=== PATIENT | female | born 1990 | race Hispanic/Latino ===

== ENCOUNTER 2017-01-29 10:37 | Day surgery (SDC) | payer MEDICAID ==
--- NOTE | 2017-01-28 12:22 | Short Stay Summary ---
Short Stay Documentation Date of service: 01/29/17 Narrative H&P: Patient seen and examined DOS and no changes noted, ready for surgery. 26 yo who adamantly wants tubal ligation and desires no further pregnancies. She says she would not desires other pregnancies if her children were killed in an accident. She understands procedure is not reversible and that the only way to get after this procedure is through IVF, which is very expensive. She also knows that this procedure has a failure rate of about 1 in 400. She accepts the stated risks of the procedure and the failure rate and the irreversibility. - History Principal diagnosis: sterilization Past Medical History: No medical history Past Surgical History: No surgical history Social history: no significant social history - Allergies and Medications Current Medications: Allergies No Known Allergies Allergy (Unverified 01/25/17 14:59) Home Medications Medication Instructions Recorded Confirmed Last Taken Type No Known Home Medications [No 01/25/17 01/25/17 Unknown History Reported Home Medications] - Physical exam General appearance: no acute distress, well-nourished Integumentary: no rash, no abnormal pigmentation HEENT: PERRLA, EOMI, Mucous membr. moist/pink Lungs: Clear to auscultation, Normal air movement Breasts: deferred Heart: Regular rate, No murmurs Gastrointestinal: normal, no tenderness, obese Female Genitourinary: normal Rectal Exam: deferred Extremities: no ischemia, No edema Neurological: Normal gait, Normal speech, Normal tone, Cranial nerves 3-12 NL - Brief post op/procedure progress note Date of procedure: 01/29/17 Pre-op diagnosis: elective sterilization Post-op diagnosis: same Procedure: laparoscopic bilateral tubal fulguration Anesthesia: GETA Findings: Normal tubes, uterus and ovaries except for a slightly clubbed left fallopian tube Surgeon: ALLAN SANDOVAL Estimated blood loss: minimal Pathology: none Condition: stable - Hospital course Hospital course: The patient did well intraoperatively and tolerated the procedure well and was discharged after a normal PACU course. - Disposition Condition at discharge: Good Disposition: DISCHARGED TO HOME OR SELFCARE - Discharge Diagnoses (1) Sterilization Status: Acute Short Stay Discharge Plan Activity: advance as tolerated (pelvic rest for 3 days, no driving until not taking [place]) Weight Bearing Status: Weight Bear as Tolerated Diet: regular Wound: open to air, keep clean and dry Follow up with: ALLAN SANDOVAL MD [Staff Physician] - 7 Days Prescriptions: HYDROcodone/APAP 5-325 [[place] 5/325] 1 each PO Q6HR PRN #20 tablet PRN Reason: Pain Ibuprofen [Motrin 600 MG tab] 600 mg PO Q8H PRN #30 tablet PRN Reason: Pain
--- NOTE | 2017-01-29 07:14 | Anesthesia Consultation ---
Anesthesia Consult and Med Hx Date of service: 01/29/17 (Scheduled for Lap BTL with Dr. Cornejo) - Pre-Operative Health Status ASA Pre-Surgery Classification: ASA2 Proposed Anesthetic Plan: General - Pre-Anesthesia Comment Pre-Anesthesia Comments: No previous anesthesia complications - Pulmonary Hx Smoking: Yes - Cardiovascular System Hx Hypertension: No - Central Nervous System Hx Psychiatric Problems: No - Gastrointestinal Hx Gastroesophageal Reflux Disease: No - Endocrine Hx Non-Insulin Dependent Diabetes: No Hx Thyroid Disease: No - Other Systems Hx Alcohol Use: Yes (occas) Hx Cancer: No Hx Obesity: Yes (BMI = 32.6)
[~2017-01-29 10:37] MED LIST: LACTATED RINGERS 1,000 ML IV SCH; NACL 0.9% IR ONE; PEPCID PO NR; VERSED IV NR
[2017-01-29] MEDS ORDERED: DIPRIVAN 10 MG/ML IV ONE (11:06)
[2017-01-29] MEDS ORDERED: DILAUDID ONE (11:07)
--- NOTE | 2017-01-29 11:37 | Anesthesia Day of Surgery ---
Anesthesia Day of Surgery - Day of Surgery Patient Examined: Yes Patient H&P Reviewed: Yes Patient is NPO: Yes
--- NOTE | 2017-01-29 11:37 | Anesthesia Consultation ---
Anesthesia Consult and Med Hx Date of service: 01/29/17 - Airway Anesthetic Teeth Evaluation: Good ROM Head & Neck: Adequate Mental/Hyoid Distance: Adequate Mallampati Class: Class II Intubation Access Assessment: Probably Good - Pulmonary Exam CTA: Yes - Cardiac Exam Cardiac Exam: RRR - Pre-Operative Health Status ASA Pre-Surgery Classification: ASA2 Proposed Anesthetic Plan: General - Pulmonary Hx Smoking: Yes (last cigarette yesterday) Hx Asthma: No - Cardiovascular System Hx Hypertension: No Hx Coronary Artery Disease: No - Central Nervous System Hx Seizures: No CVA: No Hx Psychiatric Problems: No - Gastrointestinal Hx Gastroesophageal Reflux Disease: No - Endocrine Hx Renal Disease: No Hx Non-Insulin Dependent Diabetes: No Hx Thyroid Disease: No - Other Systems Hx Alcohol Use: Yes (occas) Hx Cancer: No Hx Obesity: Yes (BMI = 32.6)
--- NOTE | 2017-01-29 11:54 | Operative Report ---
Operative Report Operative Report: Date of procedure: 01/29/2017 Time of completion of procedure: 13:22 Pre-operative diagnosis: Elective sterilization Post-operative diagnosis: Same Procedure name(s): Laparoscopic bilateral tubal fulguration Surgeon: Camryn Cornejo M.D. Director Of Catering Sales: SILVIANO Anesthesia: Gen. endotracheal Findings: Normal tubes, uterus and ovaries, except that the sigmoid was slightly adhered to the left fallopian tube and the left fallopian tube was slightly clubbed but did have an identifiable fimbriated end. EBL: Less than 10mL Procedure in detail: Patient was taken to the operating room, placed in the supine position. Adequate general endotracheal anesthesia was obtained she was prepped and draped in the dorso-lithotomy position in Juwan stirrups in the usual fashion. A surgical timeout was then taken with all members of the team attentive. After gowning and double gloving, the legs were elevated and a Chapman catheter was placed in a sterile fashion. The cervix was exposed with a sterile speculum grasped with a single-tooth tenaculum and a HUMI manipulator was placed in the uterus and the balloon was inflated with air East instruments were removed and the legs were placed in a lower position. Outside gloves were removed and attention was turned to the upper abdomen where a #11 blade was used to make a infra-umbilical incision in a vertical fashion Dupree's needle was passed through this incision and the abdomen was insufflated with approximately 2 L of carbon dioxide. A 5 mm Visi-port trocar was then placed through this incision incision with the laparoscope providing visualization. Abdominal placement was confirmed and inspection of the upper and lower abdomen revealed no obvious abnormalities, the appendix was not visualized. Carbon dioxide was connected directly to the umbilical trocar. A second 5 mm trocar was placed under direct visualization in the midline suprapubic area. Using the Kleppinger bipolar forceps, the midsection of each fallopian tube in turn was coagulated down to 0 resistance in 2 places on each tube in the isthmic portion of each tube. Hemostasis was adequate at the end of the procedure. Both trocars and the anterior abdominal wall were visualized with the laparoscope and there was no bleeding from them. Following this, the instruments were all removed from the abdomen. Carbon dioxide was allowed to escape through the ports. Both incisions were infiltrated with Marcaine 5% and then closed with inverted subcuticular sutures of 4-0 Vicryl. Band-Aids were placed on these incisions. The HUMI manipulator was removed from the uterus and the Chapman catheter was discontinued. She was placed back in the supine position and awakened and discharged to PACU in good condition.
[2017-01-29 11:58] LABS: Hematocrit 36.5 % (30.3-42.9); Hemoglobin 11.8 gm/dl (10.1-14.3); Mean Corpuscular HGB Conc 32 % (30-34); Mean Corpuscular Volume 78 fl (79-97); Platelet Count 382 K/mm3 (140-440); Red Blood Count 4.69 M/mm3 (3.65-5.03); Red Cell Distribution Width 18.5 % (13.2-15.2); White Blood Count 8.5 K/mm3 (4.5-11.0)
[2017-01-29 11:59] LABS: Mean Corpuscular Hemoglobin 25 pg (28-32)
[2017-01-29] MEDS ORDERED: PERCOCET 5/325 PO PRN (12:00)
[2017-01-29] MEDS ORDERED: DILAUDID IV PRN (12:00)
[2017-01-29] MEDS ORDERED: ZOFRAN IV PRN (12:00)
[2017-01-29] MEDS ORDERED: MARCAINE-EPI 0.25%-1:200,000 INFILTRATI ONE (12:04)
[2017-01-29] MEDS ORDERED: ROBINUL ONE (12:27)
[2017-01-29] MEDS ORDERED: ZEMURON IV ONE (12:27)
[2017-01-29] MEDS ORDERED: BLOXIVERZ ONE (12:27)
[2017-01-29] MEDS ORDERED: ZOFRAN ONE (12:27)
[2017-01-29] MEDS ORDERED: DECADRON ONE (12:28)
[2017-01-29] MEDS ORDERED: XYLOCAINE MPF 2% ONE (12:28)
[2017-01-29] MEDS ORDERED: MARCAINE-EPI 0.5%-1:200,000 INFILTRATI ONE ×2 (12:58→13:14)
[2017-01-29] MEDS ORDERED: NACL 0.9% IR ONE (13:15)
--- NOTE | 2017-01-29 14:10 | Post Anesthesia Evaluation ---
- Post Anesthesia Evaluation Patient Participated: Yes Airway Patent: Yes Stable Respiratory Function: Yes Nausea/Vomiting: No Temp > 96.8F: Yes Pain Manageable: Yes Adequeate Hydration: Yes Anesthesia Complications: No Block Receding Appropriately: Not Applicable Patient on Ventilator: No
[2017-01-29] MEDS ORDERED: NORCO 5/325 PO PRN (14:36)
[2017-01-29 14:44] VITALS: BP 122/78
== END 2017-01-29 14:57 | disposition home or self-care (01) ==
LOC: OR 10:37
PROVIDERS: ATTEND Obstetrics & Gynecology
DX: Z30.2 Encounter for sterilization (principal); F17.210 Nicotine dependence, cigarettes, uncomplicated; E66.9 Obesity, unspecified; Z68.32 Body mass index [BMI] 32.0-32.9, adult; Z72.89 Other problems related to lifestyle
CPT/HCPCS: 36415; 58670; 81025; 85027; 86850; 86900; 86901; J1100; J1170; J2250; J2405; J2704; J2710; J7120

== ENCOUNTER 2017-07-30 16:15 | Emergency (ER) | payer SELFPAY ==
--- NOTE | 2017-07-30 16:52 | Emergency Department Report ---
Stated Complaint: UTI Time Seen by Provider: 07/30/17 16:49 - HPI History of Present Illness: PT states she was born with a UTI. PT states her UTI came back today. No improvement with cranberry juice. - ROS Review of Systems: -n/v - Exam Physical Exam: PT looks well, non toxic. no acute distress no cva tenderness hernando MSE screening note: Focused history and physical exam performed. Due to findings the following was ordered: labs ED Disposition for MSE Condition: Stable
[2017-07-30 16:53] VITALS: BP 119/76
[2017-07-30 18:41] LABS: Bilirubin,Urine NEG (Negative); Blood,Urine MOD (Negative); Ketones,Urine TR mg/dL (Negative); Leukocyte Esterase,Urine LG (Negative); Mucus,Urine 3+ /HPF; Nitrite,Urine NEG (Negative)
[2017-07-30 18:43] LABS: WBC,Urine > 182.0 /HPF (0.0-6.0)
--- NOTE | 2017-07-30 19:45 | Emergency Department Report ---
ED Female HPI - General Chief complaint: Urogenital-Female Stated complaint: UTI Time Seen by Provider: 07/30/17 16:49 Source: patient Mode of arrival: Ambulatory Limitations: No Limitations - History of Present Illness Initial comments: This is a 26-year-old female nontoxic, well nourished in appearance, no acute signs of distress presents to the ED complaining of dysuria 1 day. patient denies any hematochezia, polyuria, fever, chills, back pain, nausea, vomiting, chest pain shortness of breath. Patient stated this is a chronic condition that she takes Bactrim but subsides. Patient denies any allergies or past medical history. MD Complaint: dysuria -: Gradual, days(s) (1) Radiation: non-radiating Severity: mild Severity scale (0 -10): 6 Quality: burning Consistency: constant Improves with: none Worsens with: urination Are you Now?: No Last Menstrual Period: 07/30/17 EDC: 05/06/18 Associated Symptoms: dysuria. denies: vaginal discharge, vaginal bleeding, abdominal pain, nausea/vomiting, fever/chills, headaches, loss of appetite, hematuria, rash, seizure, shortness of breath, syncope, weakness - Related Data Home Medications Medication Instructions Recorded Confirmed Last Taken Vit No.130/Iron/Folic 1 tab PO DAILY 01/29/17 01/29/17 01/28/17 08:00 [ Tablet] 1 TAB Previous Rx's Medication Instructions Recorded Last Taken Type HYDROcodone/APAP 5-325 [[place] 1 each PO Q6HR PRN #20 tablet 01/29/17 Unknown Rx 5/325] Ibuprofen [Motrin 600 MG tab] 600 mg PO Q8H PRN #30 tablet 01/29/17 Unknown Rx Sulfamethoxazole/Trimethoprim 1 each PO BID #14 tablet 07/30/17 Unknown Rx [Bactrim Ds Tablet] Allergies Allergy/AdvReac Type Severity Reaction Status Date / Time No Known Allergies Allergy Unverified 01/25/17 14:59 ED Review of Systems ROS: Stated complaint: UTI Other details as noted in HPI Constitutional: denies: chills, fever Eyes: denies: eye pain, eye discharge, vision change ENT: denies: ear pain, throat pain Respiratory: denies: cough, shortness of breath, wheezing Cardiovascular: denies: chest pain, palpitations Endocrine: no symptoms reported Gastrointestinal: denies: abdominal pain, nausea, diarrhea Genitourinary: dysuria. denies: urgency, discharge Musculoskeletal: denies: back pain, joint swelling, arthralgia Skin: denies: rash, lesions Neurological: denies: headache, weakness, paresthesias Psychiatric: denies: anxiety, depression Hematological/Lymphatic: denies: easy bleeding, easy bruising ED Past Medical Hx - Past Medical History Previous Medical History?: No Hx Hypertension: No Hx Renal Disease: No Hx Seizures: No Hx Asthma: No Hx HIV: No - Surgical History Past Surgical History?: Yes Additional Surgical History: tubes tighed - Social History Smoking Status: Current Every Day Smoker Substance Use Type: Alcohol - Medications Home Medications: Home Medications Medication Instructions Recorded Confirmed Last Taken Type HYDROcodone/APAP 5-325 [[place] 1 each PO Q6HR PRN #20 tablet 01/29/17 Unknown Rx 5/325] Ibuprofen [Motrin 600 MG tab] 600 mg PO Q8H PRN #30 tablet 01/29/17 Unknown Rx Vit No.130/Iron/Folic 1 tab PO DAILY 01/29/17 01/29/17 01/28/17 08:00 History [ Tablet] 1 TAB Sulfamethoxazole/Trimethoprim 1 each PO BID #14 tablet 07/30/17 Unknown Rx [Bactrim Ds Tablet] ED Physical Exam - General Limitations: No Limitations General appearance: alert, in no apparent distress - Head Head exam: Present: atraumatic, normocephalic, normal inspection - Eye Eye exam: Present: normal appearance, PERRL, EOMI. Absent: scleral icterus, conjunctival injection, nystagmus, periorbital swelling, periorbital tenderness Pupils: Present: normal accommodation - ENT ENT exam: Present: normal exam, normal orophraynx, mucous membranes moist, TM's normal bilaterally, normal external ear exam - Neck Neck exam: Present: normal inspection, full ROM. Absent: tenderness, meningismus, lymphadenopathy, thyromegaly - Respiratory Respiratory exam: Present: normal lung sounds bilaterally. Absent: respiratory distress, wheezes, rales, rhonchi, stridor, chest wall tenderness, accessory muscle use, decreased breath sounds, prolonged expiratory - Cardiovascular Cardiovascular Exam: Present: regular rate, normal rhythm, normal heart sounds. Absent: systolic murmur, diastolic murmur, rubs, gallop - GI/Abdominal GI/Abdominal exam: Present: soft, normal bowel sounds. Absent: distended, tenderness, guarding, rebound, rigid, diminished bowel sounds - Rectal Rectal exam: Present: deferred - Extremities Exam Extremities exam: Present: normal inspection, full ROM, normal capillary refill. Absent: tenderness, pedal edema, joint swelling, calf tenderness - Back Exam Back exam: Present: normal inspection, full ROM. Absent: tenderness, CVA tenderness (R), CVA tenderness (L), muscle spasm, paraspinal tenderness, vertebral tenderness, rash noted - Neurological Exam Neurological exam: Present: alert, oriented X3, CN II-XII intact, normal gait, reflexes normal - Psychiatric Psychiatric exam: Present: normal affect, normal mood - Skin Skin exam: Present: warm, dry, intact, normal color. Absent: rash ED Course Vital Signs 07/30/17 16:51 Temperature 98.4 F Pulse Rate 94 H Respiratory 16 Rate Blood Pressure 119/76 O2 Sat by Pulse 100 Oximetry - Reevaluation(s) Reevaluation #1: 07/30/17 19:47 Patient is speaking in full sentences with no signs of distress noted. ED Medical Decision Making - Medical Decision Making 26-year-old female that presents with UTI. UA obtained indicate elevated WBCs, RBCs. Patient received Bactrim 7 days. patient was examined by me and patient is stable.Patient was instructed to follow-up with a primary care doctor in 3-5 days or if symptoms worsen and continue return to emergency room as soon as possible possible. Patient is hemodynamically stable with stable vital signs. At time time of discharge, the patient does not seem toxic or ill in appearance. No acute signs of distress noted. Patient agrees to discharge treatment plan of care. No further questions noted by the patient. Critical care attestation.: If time is entered above; I have spent that time in minutes in the direct care of this critically ill patient, excluding procedure time. ED Disposition Clinical Impression: UTI (urinary tract infection) Qualifiers: Urinary tract infection type: site unspecified Hematuria presence: without hematuria Qualified Code(s): N39.0 - Urinary tract infection, site not specified UTI (urinary tract infection) Qualifiers: Urinary tract infection type: site unspecified Hematuria presence: without hematuria Qualified Code(s): N39.0 - Urinary tract infection, site not specified Disposition: DC-01 TO HOME OR SELFCARE Is pt being admited?: No Does the pt Need Aspirin: No Condition: Stable Instructions: Sulfamethoxazole/Trimethoprim (By mouth), Urinary Tract Infection in Women (ED) Additional Instructions: Follow-up with a primary care doctor in 3-5 days or if symptoms worsen and continue return to emergency room as soon as possible possible. Prescriptions: Sulfamethoxazole/Trimethoprim [Bactrim Ds Tablet] 1 each PO BID #14 tablet Referrals: [facility] [place] [Outside] - 3-5 Days [facility] [Outside] - 3-5 Days MONSTER EDOUARD MD [Staff Physician] - 3-5 Days PRIMARY CAREMD [Primary Care Provider] - 3-5 Days Forms: Work/School Release Form(ED)
== END 2017-07-30 19:26 | disposition home or self-care (01) ==
LOC: ED 16:15
DX: N39.0 Urinary tract infection, site not specified (principal); F17.200 Nicotine dependence, unspecified, uncomplicated
CPT/HCPCS: 81001; 81025; 99283